=== PATIENT | female | born 1980 | race Two or more races ===

== ENCOUNTER 2018-04-01 13:53 | Observation (INO) | payer MEDICAID ==
[~2018-04-01] VITALS: Ht 165.1 cm; Wt 82.6 kg
[2018-04-01] MEDS ORDERED: PREN-380 PO (14:41)
[2018-04-01] MEDS ORDERED: FERR325E14 PO (14:41)
[2018-04-01 14:50] VITALS: BP 107/65
== END 2018-04-01 16:35 | disposition home or self-care (01) ==
LOC: MLD 13:53
PROVIDERS: ADMIT Obstetrics & Gynecology; ATTEND Obstetrics & Gynecology
DX: O26.893 Other specified pregnancy related conditions, third trimester (principal); R10.9 Unspecified abdominal pain; Z3A.37 37 weeks gestation of pregnancy
CPT/HCPCS: 76805; G0378; Q0092

== ENCOUNTER 2018-04-15 01:54 | Inpatient (IN) | payer MEDICAID ==
[~2018-04-15] VITALS: Ht 154.9 cm; Wt 83.0 kg
[~2018-04-15 01:54] MED LIST: FERR325E14 PO; PREN-380 PO
[2018-04-15] MEDS ORDERED: LACTATED RINGERS 1,000 ML IV SCH (08:04)
[2018-04-15] MEDS ORDERED: CEFAZOLIN SODIUM 2 GM/D5W PM 50 ML IV SCH (08:10)
[2018-04-15 08:13] VITALS: BP 113/63
[2018-04-15] MEDS ORDERED: CITRIC ACID/SODIUM CITRATE 30 ML UDC PO SCH (08:30)
[2018-04-15 09:41] LABS: BASOPHILS % (AUTO) 0.4 % (0.0-2.0); EOSINOPHILS % (AUTO) 0.6 % (0.0-4.0); HEMOGLOBIN 11.2 g/dL (12.0-16.0); LYMPHOCYTES # (AUTO) 1.6 K/uL (2.5-16.5); LYMPHOCYTES % (AUTO) 24.8 % (20.5-51.1); MEAN CORPUSCULAR HEMOGLOBIN 25 pg (27-31); MEAN CORPUSCULAR HGB CONC 32 g/dL (33-37); MEAN CORPUSCULAR VOLUME 78.5 fL (80-94); MONOCYTES # (AUTO) 0.6 K/uL (0.8-1.0); NEUTROPHILS # (AUTO) 4.1 K/uL (1.8-7.7); NEUTROPHILS % (AUTO) 64.2 % (42.2-75.2); PLATELET COUNT (AUTO) 197 K/uL (140-450); RED BLOOD CELL COUNT(AUTO) 4.46 MIL/uL (4.20-5.40); RED CELL DISTRIBUTION WIDTH 14.6 % (11.6-13.7); WHITE BLOOD COUNT (AUTO) 6.3 K/uL (4.8-10.8)
[2018-04-15 09:48] LABS: APPEARANCE,URINE SL CLOUDY (CLEAR); BILIRUBIN,URINE 1+ (NEGATIVE); BLOOD, URINE NEGATIVE (NEGATIVE); COLOR,URINE YELLOW (YELLOW); LEUKOCYTE ESTERASE ,URINE 1+ (NEGATIVE); NITRITE, URINE NEGATIVE (NEGATIVE); UGLUCOSE NEGATIVE (NEGATIVE)
[2018-04-15 09:53] LABS: RBC,URINE 0-5 (RARE) /HPF (0-5)
[2018-04-15 09:56] LABS: ALBUMIN 2.5 g/dL (3.4-5.0); ANION GAP 13.4 (8-16); CARBON DIOXIDE 22.2 mmol/L (21-32); CREATININE 0.7 mg/dL (0.6-1.3); POTASSIUM 3.6 mmol/L (3.5-5.1); TOTAL BILIRUBIN 0.3 mg/dL (0.0-1.0)
[2018-04-15] MEDS ORDERED: MIDAZOLAM 2 MG/2 ML VIAL ONE (10:40)
[2018-04-15] MEDS ORDERED: MORPHINE PRES FREE 2 MG/2 ML 2 mL UD SYRINGE ONE (10:40)
[2018-04-15] MEDS ORDERED: BUPIVACAINE/DEXT 0.75% SPINAL 2 ML AMP INJ ONE (10:41)
[2018-04-15] MEDS ORDERED: OXYTOCIN 20 UNITS in LACTATED RINGERS 1,000 ML IV SCH (11:04)
[2018-04-15] MEDS ORDERED: ONDANSETRON 4 MG/2 ML VIAL IVP PRN ×2 (11:05→15:00)
[2018-04-15] MEDS ORDERED: MEPERIDINE 25 MG/ML SYR IVP PRN (11:05)
[2018-04-15] MEDS ORDERED: HYDROmorphone 1 MG/ML AMP IVP PRN ×2 (11:05→13:00)
[2018-04-15] MEDS ORDERED: NALOXONE 0.4 MG/ML VIAL IVP PRN ×3 (11:05)
[2018-04-15] MEDS ORDERED: NALBUPHINE 10 MG/ML AMP IVP PRN (11:05)
[2018-04-15] MEDS ORDERED: diphenhydrAMINE 50 MG/ML VIAL IVP PRN ×2 (11:05)
[2018-04-15] MEDS ORDERED: KETOROLAC 30 MG/ML VIAL IM/IVP SCH (12:00)
[2018-04-15] MEDS ORDERED: diphenhydrAMINE 50 MG/ML VIAL ONE ×2 (12:43→17:05)
[2018-04-15] MEDS ORDERED: OXYTOCIN 20 UNITS/LR PREMIX 1,000 ML IV ONE ×2 (12:43→20:53)
[2018-04-15] MEDS ORDERED: ONDANSETRON 4 MG/2 ML VIAL ONE (12:54)
[2018-04-15] MEDS ORDERED: MEASLES, MUMPS, AND RUBELLA 1 VIAL SQVAC PRN (13:00)
[2018-04-15] MEDS ORDERED: METHYLERGONOVINE 0.2 MG/ML AMP ONE (13:19)
[2018-04-15] MEDS ORDERED: METHYLERGONOVINE 0.2 MG/ML AMP IM ONE (13:20)
[2018-04-15] MEDS ORDERED: AMPICILLIN 2,000 MG VIAL ONE ×2 (18:39→22:43)
[2018-04-15] MEDS: OXYTOCIN 20 UNITS in LACTATED RINGERS 1,000 ML IV SCH (20:58)
[2018-04-15] MEDS: AMPICILLIN 2,000 MG in NACL 0.9% 100 ML IV SCH (22:48)
[2018-04-16] MEDS ORDERED: AMPICILLIN 2,000 MG VIAL ONE ×2 (02:53→07:37)
[2018-04-16] MEDS: AMPICILLIN 2,000 MG in NACL 0.9% 100 ML IV SCH ×2 (02:58→07:42)
[2018-04-16] MEDS ORDERED: OXYTOCIN 10 UNITS/ML VIAL ONE (07:22)
[2018-04-16] MEDS: OXYTOCIN 20 UNITS in LACTATED RINGERS 1,000 ML IV SCH (07:40)
[2018-04-16 09:00] LABS: BASOPHILS % (AUTO) 0.3 % (0.0-2.0); EOSINOPHILS % (AUTO) 0.4 % (0.0-4.0); HEMATOCRIT 30.8 % (36-48); HEMOGLOBIN 10.1 g/dL (12.0-16.0); LYMPHOCYTES # (AUTO) 1.1 K/uL (2.5-16.5); LYMPHOCYTES % (AUTO) 11.5 % (20.5-51.1); MEAN CORPUSCULAR HEMOGLOBIN 26 pg (27-31); MEAN CORPUSCULAR HGB CONC 33 g/dL (33-37); MEAN CORPUSCULAR VOLUME 78.5 fL (80-94); MONOCYTES # (AUTO) 0.9 K/uL (0.8-1.0); MONOCYTES % (AUTO) 9.2 % (1.7-9.3); NEUTROPHILS # (AUTO) 7.5 K/uL (1.8-7.7); NEUTROPHILS % (AUTO) 78.6 % (42.2-75.2); PLATELET COUNT (AUTO) 168 K/uL (140-450); RED BLOOD CELL COUNT(AUTO) 3.92 MIL/uL (4.20-5.40); RED CELL DISTRIBUTION WIDTH 14.5 % (11.6-13.7); WHITE BLOOD COUNT (AUTO) 9.6 K/uL (4.8-10.8)
[2018-04-16] MEDS: KETOROLAC 30 MG/ML VIAL IVP PRN ×2 (09:47→19:06)
[2018-04-17] MEDS: oxyCODONE/APAP 5/325 MG 1 TAB TAB PO PRN ×2 (06:09→14:10)
[2018-04-17] MEDS ORDERED: IBUPROFEN 600 MG TAB PO PRN (08:00)
[2018-04-17] MEDS ORDERED: SODIUM PHOSPHATE 118 ML ENEM RC PRN (08:00)
[2018-04-17] MEDS ORDERED: ACETAMINOPHEN 325 MG TAB PO PRN (08:00)
[2018-04-17] MEDS: SIMETHICONE 80 MG TAB.CHEW PO PRN (21:13)
[2018-04-17] MEDS: DOCUSATE SODIUM 100 MG GELCAP PO PRN (21:14)
[2018-04-18] MEDS: oxyCODONE/APAP 5/325 MG 1 TAB TAB PO PRN ×2 (10:49→19:58)
[2018-04-18] MEDS: SIMETHICONE 80 MG TAB.CHEW PO PRN (10:50)
[2018-04-18] MEDS: DOCUSATE SODIUM 100 MG GELCAP PO PRN (21:57)
== END 2018-04-19 15:00 | disposition home or self-care (01) | DRG 540 ==
LOC: MLD 07:22 → EDUNIT# 10:30 → MFCC 11:20
PROVIDERS: ADMIT Obstetrics & Gynecology; ATTEND Obstetrics & Gynecology
PROC: 10D00Z1 Extraction of Products of Conception, Low, Open Approach (ICD-10-PCS; principal; 2018-04-15 10:30)
PROC: 3E0234Z Introduction of Serum, Toxoid and Vaccine into Muscle, Percutaneous Approach (ICD-10-PCS; 2018-04-17)
DX: O34.211 Maternal care for low transverse scar from previous cesarean delivery (principal); E66.01 Morbid (severe) obesity due to excess calories; O99.824 Streptococcus B carrier state complicating childbirth; O99.214 Obesity complicating childbirth; Z3A.39 39 weeks gestation of pregnancy; Z37.0 Single live birth; Z23 Encounter for immunization; Z68.34 Body mass index [BMI] 34.0-34.9, adult
CPT/HCPCS: 36415; 80053; 81001; 85025; 86592; 86886; 86900; 86901; 87081; 87086; 90715; J0290; J0690; J1200; J1885; J2210; J2250; J2270; J2405; J2590; J3490; J7120